=== PATIENT | male | born 1995 | race Caucasian/White ===

== ENCOUNTER 2017-10-13 05:21 | Emergency (ER) | payer BC ==
[~2017-10-13] VITALS: Ht 180.3 cm; Wt 79.4 kg
[2017-10-13] MEDS ORDERED: Ofloxacin5 M1 RIGHTEAR (07:39)
[2017-10-13] MEDS ORDERED: Veetids 500500 MG PO (07:39)
== END 2017-10-13 07:51 | disposition home or self-care (01) ==
LOC: ER 05:21
DX: H66.91 Otitis media, unspecified, right ear (principal)
CPT/HCPCS: 99282